=== PATIENT | male | born 1945 | race Caucasian/White ===

== ENCOUNTER 2020-11-02 19:45 | Emergency (ER) | payer OTHER ==
[~2020-11-02 19:45] MED LIST: ASPIRIN81 M1 PO; ATENOLOL25 MG PO; FISH OIL500 M1 PO; INSULIN SC; OMEPRAZOLE20 M1 PO; SERTRALINE HYDR25 MG PO; VITAMIN D-32000 UNI1 PO
== END 2020-11-02 22:50 | disposition left against medical advice (07) ==
LOC: ED 19:45
DX: M79.646 Pain in unspecified finger(s) (principal); Z53.21 Procedure and treatment not carried out due to patient leaving prior to being seen by health care provider; X58.XXXA Exposure to other specified factors, initial encounter; Y93.89 Activity, other specified; Y92.89 Other specified places as the place of occurrence of the external cause; Y99.8 Other external cause status

== ENCOUNTER → 2020-12-23 | Outpatient (CLI) | payer OTHER | END | disposition home or self-care (01) | LOC: COVID19 17:24 | PROVIDERS: ATTEND Internal Medicine | DX: Z11.52 Encounter for screening for COVID-19 (principal) ==

== ENCOUNTER 2025-01-04 13:33 | Emergency (ER) | payer OTHER ==
[~2025-01-04] VITALS: Ht 182.8 cm; Wt 93.4 kg
[2025-01-04] MEDS ORDERED: ACETAMINOPHEN 100 ML IV ONE (14:25)
[2025-01-04] MEDS ORDERED: BUSPAR5 MG PO (14:30)
[2025-01-04] MEDS ORDERED: ELIQUIS5 M1 PO (14:31)
[2025-01-04] MEDS ORDERED: PRILOSEC20 M1 PO (14:31)
[2025-01-04] MEDS ORDERED: ALLEGRA ALLERG180 M2 PO (14:32)
[2025-01-04] MEDS ORDERED: ARICEPT10 M1 PO (14:32)
[2025-01-04] MEDS ORDERED: LIPITOR80 MG PO (14:32)
[2025-01-04] MEDS ORDERED: OZEMPIC0.25 MG/03 SQ (14:33)
[2025-01-04] MEDS ORDERED: INSULIN GL300 UNIT/1 SQ (14:33)
[2025-01-04] MEDS ORDERED: SERTRALINE HCL150 MG PO (14:35)
[2025-01-04] MEDS ORDERED: LOPRESSOR25 MG PO (14:35)
[2025-01-04 14:37] LABS: MEAN CELL VOLUME 88.9 fl (80.0-94.0); MEAN CORPUSCULAR HGB 29.0 pg (27.0-31.0); MEAN PLATELET VOLUME 9.6 fl (9.6-12.3); NUCLEATED RED BLOOD CELL 0.0 % (0.0-0.0); NUCLEATED RED BLOOD CELL 0.0 10*3/uL (0.0-0.0); PLATELET COUNT AUTOMATED 143 10*3/uL (130-400); RED CELL DISTRI WIDTH 13.2 % (0-14.5)
[2025-01-04 14:38] LABS: MANUAL DIFF REFLEX YES
[2025-01-04 14:59] LABS: BUN 19 mg/dl (9-23); ETHYL ALCOHOL 4.2 mg/dl (<3); SGPT/ALT 14 U/L (5-49)
[2025-01-04 15:01] LABS: PLATELET SUFFICIENCY NORMAL (NORMAL)
[2025-01-04 15:26] LABS: ACT PARTIAL THROMBO TIME 25.6 SECONDS (20.0-32.1)
[2025-01-04 15:56] LABS: BILIRUBIN Negative (Negative); BLOOD Trace-Lysed (Negative); CLARITY Clear (Clear); COLOR Yellow (Yellow); KETONE Trace (Negative); LEUKO ESTERASE Negative (Negative); NITRITE Negative (Negative); PH 6.5 (4.5-8.0); SPECIFIC GRAVITY 1.020 (1.001-1.030); UROBILINOGEN 1.0 E.U./dl (0.0-1.0)
[2025-01-04 16:03] LABS: URINE AMPHETAMINES Negative (1000ng/ml); URINE BARBITURATES Negative (200ng/ml); URINE BENZODIAZEPINES Negative (200ng/ml); URINE CANNABINOIDS (THC) Negative (50ng/ml); URINE COCAINE Negative (300ng/ml); URINE METHADONE Negative (300ng/ml); URINE OPIATES Negative (300ng/ml); URINE PHENCYCLIDINE Negative (25ng/ml)
[2025-01-04 16:06] LABS: BACTERIA TRACE; RBC 21-30 rbc/hpf (0-2); WBC 0-2 wbc/hpf (0-5)
[2025-01-04] MEDS ORDERED: Lactated Ringer's Solution 1,000 ML IV SCH (17:10)
== END 2025-01-04 21:48 | disposition short-term general hospital (02) ==
LOC: ED 13:33
PROVIDERS: Emergency Medicine
DX: J18.9 Pneumonia, unspecified organism (principal); G93.40 Encephalopathy, unspecified; I10 Essential (primary) hypertension; E11.9 Type 2 diabetes mellitus without complications; I25.10 Atherosclerotic heart disease of native coronary artery without angina pectoris; Z20.822 Contact with and (suspected) exposure to COVID-19